=== PATIENT | female | born 1960 | race Caucasian/White ===

== ENCOUNTER 2023-05-18 08:52 | Emergency (ER) | payer BC, SELFPAY ==
[2023-05-18 08:59] VITALS: BP 201/114
--- NOTE | 2023-05-18 09:07 | ED.GENMED ---
History of Present Illness
General
Chief Complaint: Chest Pain
Source: patient
Exam Limitations: none
Time Seen by Provider: 05/18/23 09:06
Nursing documentation reviewed up to this point in time: agreed with
Travel History
Have you had any contact with someone who has COVID-19?: No
Do you have any symptoms of coronavirus? Fever > 100 degrees, chills, cough, shortness of breath, sore throat, loss of taste or smell, muscle aches, or headache?: No
History of Present Illness
History of Present Illness:
62-year-old female presents w 'high blood pressure and my chest feels tight.' History of recent HTN, ex-smoker presents stating she's had mid non radiating chest pressure off and on for 2 months, went to PCP yesterday and found to be hypertensive
and started on Losartan 25 mg daily, she has had total of 2 doses. Out pt labs and thallium stress test, chest CT ordered. Awaiting insurance clearance for the stress test and echo. Has 'some' SOB intermittently. Denies n/v/d/c. Denies recent
travel.
Past History
Past History
ED Past Medical History: HTN
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
Social History
Tobacco: Former smoker (quit 8 yrs ago)
Alcohol: Daily (beer)
Personal:
Living: with family
Employment: Employed
Review of Systems
Review of Systems
Allergies reviewed?: Yes
All Other Systems: ROS reviewed and negative except as documented in HPI and ROS
Constitutional: Denies fever or fatigue
Respiratory: Reports trouble breathing ('A little' intermittently short of breath); Denies cough
Cardiac: Reports chest pain; Denies diaphoresis, palpitations or syncope
ABD/GI: Denies abdominal pain, nausea or vomiting
: Denies dysuria, frequency or urgency
Musculoskeletal: Reports no symptoms
Skin: Reports no symptoms
Neurological: Reports no symptoms
Psychiatric: Reports no symptoms
Phy Exam
Physical Exam
Physical Exam:
GENERAL: No acute distress. A&Ox3.
CONSTITUTIONAL: Afebrile.
EYES: clear, conjunctivae normal
ENMT: moist mucus membranes, Pharynx nl
RESPIRATORY: Regular respirations, nonlabored, lungs clear.
CARDIOVASCULAR: Regular rate and rhythm, no murmurs, no rubs.
GI: Soft, nontender, normal BS
MUSCULOSKELETAL: Moves with ease. Well perfused. No edema
SKIN: Warm, dry, pink
PSYCH: Normal mood and affect. Well kept, interactive and appropriate
NEUROLOGIC: Awake, alert and oriented. No focal neurological deficits
Scores
Heart Score for Chest Pain Patients
STEMI patient?: Not applicable
Course
Orders/Labs/Results
Orders:
Orders
05/18/23 08:55
Electrocardiogram (*1) Urgent
Reason for Study: Chest Pain
EKG- Treatment ONCE
05/18/23 09:31
Complete Blood Count/With Diff Urgent
Comprehensive Metabolic Panel Urgent
TSH Reflex To Free T4 Urgent
Troponin I Urgent
Abnormal Lab Results
05/18/23
09:31
MCH 33.8 H pg
(27.0-31.0)
Glucose 109 H mg/dl
(70-99)
05/18/23 09:31
05/18/23 09:31
Vital Signs
Initial and Last Documented VS:
Initial Vital Signs
Temp Pulse Resp BP Pulse Ox
98.3 F 89 20 201/114 97
05/18/23 08:59 05/18/23 08:59 05/18/23 08:59 05/18/23 08:59 05/18/23 08:59
Last Documented Vital Signs
Temp Pulse Resp BP Pulse Ox
98.3 F 80 24 153/92 96
05/18/23 08:59 05/18/23 11:00 05/18/23 11:00 05/18/23 11:00 05/18/23 11:00
MDM/Problems Addressed
Differential Diagnosis Includes:
ACS, angina, HTN,
MDM/Problems Addressed:
62-year-old female presents w 'high blood pressure and my chest feels tight.' History of recent HTN, ex-smoker presents stating she's had mid non radiating chest pressure off and on for 2 months, went to PCP yesterday and found to be hypertensive
and started on Losartan 25 mg daily, she has had total of 2 doses. Out pt labs and thallium stress test, chest CT ordered. Awaiting insurance clearance for the stress test and echo. Has 'some' SOB intermittently. Denies n/v/d/c. Denies recent
travel.
10:32 AM
CBC normal
CMP normal
Troponin normal
BP 165/86
11:06 AM
TSH normal
BP 153/92
No evidence end organ damage
Plan: Folow up with PCP in 5-7 days for BP check
Referred to chest pain hotline
*Critical Care Note
Total Time (30-74mins, 75-104mins- exclusive of procedures): Not Applicable
ED Attending Note
-
Portions of this chart may have been created with voice recognition software.� Occasional wrong word or��sound alike� substitutions may have occurred due to the inherent limitations of voice recognition software.
Discharge Plan
Departure
Patient Disposition: Home (Routine Discharge)
Date of Disposition: 05/18/23
Time of Disposition: 11:03
Patient with high blood pressure during this ER visit?: Yes
Condition: Good
Discharge Problem:
Atypical chest pain, Hypertension
Instructions: Acid Reflux and GERD in Adults (DC), Chest Pain CBC Follow Up
Referrals:
Virginia Salguero PA-C [Family Provider] - Keep scheduled appt
Dylon العراقي MD [Active] - Keep scheduled appt
Activity Restrictions/Additional Instructions:
As we discussed, your workup here today shows nothing worrisome. Specifically no indication of injury to your heart or kidneys. Your blood pressure has come down significantly. Continue your losartan as ordered.
I sent your information to our cardiac office, someone will get touch with you within the next 2 days to arrange for a more thorough cardiac workup.
Have your blood pressure checked within the next week, you may need medication adjustment or other medication added.
Return here immediately for chest pain associated with vomiting, lightheadedness, shortness of breath, or feeling sicker in any way.
Take Omeprazole 40 mg daily and see if it helps, let your doctor know
Interventions
Interventions:
*Nursing Disposition Last Done: 05/18/23 11:25
ED- Cardiac Assessment Last Done: 05/18/23 09:30
Discharge Date and Time
Discharge Date/Time: 05/18/23 11:25
Print Language: [id number]
[2023-05-18 09:15] VITALS: BP 186/101
[2023-05-18 09:38] LABS: % Basophils 0.7 % (0-2); % Eosinophils 3.3 % (0-6); % Immature Granulocytes 0.3 % (0-0.5); % Lymphocytes 25.9 % (20.5-51.1); % Monocytes 6.8 % (1.7-9.3); Absolute Basophils 0.1 10^3/uL (0-0.2); Absolute Eosinophils 0.3 10^3/uL (0-0.7); Absolute Monocytes 0.5 10^3/uL (0.1-0.6); Absolute Neutrophils 4.9 10^3/uL (1.4-6.5); Hemoglobin 14.8 g/dL (12.0-16.0); Mean Corp Hgb Conc. 36.1 g/dL (33.0-37.0); Mean Corpuscular Hgb 33.8 pg (27.0-31.0); Mean Corpuscular Volume 93.6 fL (81.0-99.0); Mean Platelet Volume 9.5 fL (7.4-10.4); Nucleated Red Blood Cells % 0 %; Platelet Count 201 10^3/uL (130-400); Red Blood Cell Count 4.38 10^6/uL (4.20-5.40); Red Cell Dist. Width 12.2 % (11.5-14.5); White Blood Cell Count 7.7 10^3/uL (4.8-10.8)
[2023-05-18 09:52] LABS: ALT (SGPT) 20 U/L (0-35); AST (SGOT) 21 U/L (14-36); Albumin 4.4 g/dl (3.5-5.0); Alkaline Phosphatase 101 U/L (38-126); Blood Urea Nitrogen 14 mg/dl (7-17); Calcium 9.9 mg/dl (8.4-10.2); Carbon Dioxide 22 mmol/L (22-30); Chloride 105 mmol/L (98-107); Glucose 109 mg/dl (70-99); Sodium 136 mmol/L (135-145); Total Bilirubin 0.7 mg/dl (0.2-1.3); Total Protein 7.4 g/dl (6.3-8.2); eGFR > 60.00
[2023-05-18 10:00] VITALS: BP 165/86
[2023-05-18 10:03] LABS: Troponin I < 0.012 ng/ml
[2023-05-18 10:10] VITALS: BMI 31.4
[2023-05-18 11:00] VITALS: BP 153/92
[2023-05-18 11:04] LABS: TSH Reflex To Free T4 2.07 uIU/ml (0.47-4.68)
== END 2023-05-18 11:25 | disposition home or self-care (01) ==
LOC: EMR 08:52
PROVIDERS: Registered Nurse; EMERGENCY PHYSICIAN Emergency Medicine; FAMILY PHYSICIAN Physician Assistant
DX: R07.89 Other chest pain (principal); I10 Essential (primary) hypertension; Z79.899 Other long term (current) drug therapy; Z87.891 Personal history of nicotine dependence
CPT/HCPCS: 99283; 80053; 84443; 84484; 85025; 93005